=== PATIENT | female | born 1940 | race Caucasian/White ===

== ENCOUNTER 2018-06-03 04:27 | Emergency (ER) ==
[2018-06-03] MEDS ORDERED: DUONEB NEB STA (04:32)
[2018-06-03] MEDS ORDERED: SOLU-MEDROL 125 MG IVP STA (04:35)
--- NOTE | 2018-06-03 04:44 | ED.PDOC ---
General ED Provider: Dr. JAZMYNE LOCK Chief Complaint: Shortness of Air Stated Complaint: Patient is visiting from out of [facility]. She states that she has been short of breath since last night got worse this morning. Called the ambulace to [facility] where she was found to have an oxygen saturation in the 70's on 3 liters which improved with increased oxygen supplimentation and a breathing treatment. Time Seen by Physician: 04:36 Mode of Arrival: Ambulance Information Source: Patient, Family Exam Limitations: Clinical condition Nursing and Triage Documentation Reviewed and Agree: Yes Does patient meet sepsis criteria?: Yes If yes, has appropriate treatment been initiated?: Yes System Inflammatory Response Syndrome: Pulse >90 BPM, Resp >20/Minute Sepsis Protocol: For patient's 13 years and over: Temp is 96.8 and below OR 101 and greater Pulse >90 BPM Resp >20/minute Acutely Altered Mental Status Are patient's symptoms suggestive of a new infection, such as: -Pneumonia -Skin, Soft Tissue -Endocarditis -UTI -Bone, Joint Infection -Implantable Device -Acute Abdominal Infection -Wound Infection -Meningitis -Blood Stream Catheter Infection -Unknown Review of Systems - Review Of Systems Constitutional: Reports: No symptoms Eyes: Reports: No symptoms Ears, Nose, Mouth, Throat: Reports: No symptoms Respiratory: Reports: Cough, Short of air Cardiac: Reports: No symptoms GI: Reports: No symptoms : Reports: No symptoms Musculoskeletal: Reports: No symptoms Skin: Reports: No symptoms Neurological: Reports: No symptoms Endocrine: Reports: No symptoms Hematologic/Lymphatic: Reports: No symptoms All Other Systems: Reviewed and Negative Past Medical History - Past Medical History Previously Healthy: Yes Endocrine: Reports: None Cardiovascular: Reports: None Respiratory: Reports: COPD Hematological: Reports: None Gastrointestinal: Reports: None Genitourinary: Reports: None Neuro/Psych: Reports: None Musculoskeletal: Reports: None Cancer: Reports: None - Surgical History General Surgical History: Reports: None - Family History Family History: Reports: Unknown - Social History Smoking Status: Former smoker Hx Substance Use: No Lives: With family Physical Exam - Physical Exam Appearance: Ill-appearing, Thin Ill-appearing: Severe Eyes: ENZO, EOMI, Conjunctiva clear Neck: Supple Respiratory: Breath sounds diminished Cardiovascular: Tachycardia Musculoskeletal: Normal strength Skin: Warm, Dry Neurological: Motor intact, Alert, Oriented Psychiatric: Anxious Interpretation - Radiology Interpretation Radiology Interpretation By: Radiologist Radiology Results: Positive Exam Interpreted: Portable CXR (Left basilar Interstitial infiltrate which may be chronic in nature.) - EKG Interpretation Time of EKG #1: 04:58 Rate: Tachy Rhythm: Sinus Ectopy: PACs Interpretation: Pulmonary Disease partten Re-Evaluation - Re-Evaluation Time of Re-Evaluation: 05:15 Status: Improved Vital Signs Stable: Yes (P 108, REP 38, BP 150/78.) Lungs: Other (diminished) Skin: Warm and Dry Neuro: Alert and Oriented X3 - Re-Evaluation Time of Re-Evaluation: 06:29 Status: Improved (comfortable resting in bed. ) Vital Signs Stable: Yes (BP144/73, P 98, R28, Sat 92% on 50% Venti-mask) Appearance: NAD Skin: Warm and Dry Neuro: Alert and Oriented X3 CV: Other (Good air movement) Physician Notification - Case Discussed Physician Notified: Dr Garcia Time of Notification: 06:00 (Declined to admit due to RR>30 needs a roving carrier. "It does not matter if she is DNR") Physician Notified: Dr Ivory Time of Notification: 06:30 (accepted for transfer to Room 47,) Critical Care Note - Critical Care Note Total Time (mins): 45 Comments: managing COPD exacerbation Course - Course Hematology/Chemistry: 06/03/18 04:30 06/03/18 04:30 Orders, Labs, Meds: Lab Review 06/03/18 06/03/18 06/03/18 04:30 04:30 04:30 WBC 11.42 H RBC 5.19 Hgb 16.4 H Hct 53.0 H MCV 102.1 H MCH 31.6 H MCHC 30.9 L RDW Coeff of Dora 13.5 Plt Count 340 Immature Gran % (Auto) 0.3 Neut % (Auto) 79.2 Lymph % (Auto) 13.4 [place] % (Auto) 5.5 Eos % (Auto) 1.2 Baso % (Auto) 0.4 Immature Gran # (Auto) 0.0 Neut # (Auto) 9.1 H Lymph # (Auto) 1.5 [place] # (Auto) 0.6 Eos # (Auto) 0.1 Baso # (Auto) 0.0 Puncture Site O2 Saturation ABG pH ABG pCO2 ABG pO2 ABG HCO3 ABG Total CO2 ABG Base Excess Seamus Test O2 Delivery Device Oxygen Liter Flow FiO2 % Sodium 142.1 Potassium 4.68 Chloride 104.9 Carbon Dioxide 31.8 H Anion Gap 10.08 BUN 22.8 H Creatinine 0.72 Estimated GFR (MDRD) 79.00 BUN/Creatinine Ratio 31.66 Glucose 121.8 H Lactic Acid Calcium 9.20 Total Bilirubin 0.79 AST 81.9 H ALT 75.3 H Alkaline Phosphatase 151.5 H Total Creatine Kinase 38.0 Troponin I 0.036 Total Protein 7.25 Albumin 3.79 Globulin 3.46 Albumin/Globulin Ratio 1.09 Procalcitonin 0.05 06/03/18 06/03/18 04:32 04:50 WBC RBC Hgb Hct MCV MCH MCHC RDW Coeff of Dora Plt Count Immature Gran % (Auto) Neut % (Auto) Lymph % (Auto) [place] % (Auto) Eos % (Auto) Baso % (Auto) Immature Gran # (Auto) Neut # (Auto) Lymph # (Auto) [place] # (Auto) Eos # (Auto) Baso # (Auto) Puncture Site Lb O2 Saturation 95.0 ABG pH 7.379 ABG pCO2 41.3 ABG pO2 75.0 L ABG HCO3 24.4 ABG Total CO2 26 ABG Base Excess -1 Seamus Test + O2 Delivery Device Venturi mask Oxygen Liter Flow 12.00 FiO2 % 50.0 Sodium Potassium Chloride Carbon Dioxide Anion Gap BUN Creatinine Estimated GFR (MDRD) BUN/Creatinine Ratio Glucose Lactic Acid 1.55 Calcium Total Bilirubin AST ALT Alkaline Phosphatase Total Creatine Kinase Troponin I Total Protein Albumin Globulin Albumin/Globulin Ratio Procalcitonin Orders Category Date Time Status ABG DRAW REQUEST Stat CARDIO 06/03/18 04:33 Completed EKG-(ED ONLY) Stat CARDIO 06/03/18 04:32 Completed NEBULIZER TREATMENT Stat CARDIO 06/03/18 04:33 Completed ED APPLY O2 .ONCE EMERGENCY 06/03/18 04:32 Active ED CEMENT MASON APPLIED .ONCE EMERGENCY 06/03/18 04:32 Active ED IV/MEDIPORT/POWERPORT .ONCE EMERGENCY 06/03/18 04:32 Active ABG Stat LAB 06/03/18 04:32 Completed BLOOD CULTURE (ED ONLY) Stat LAB 06/03/18 04:50 Received CBC W/ AUTO DIFF Stat LAB 06/03/18 04:30 Completed COMPREHENSIVE METABOLIC PANEL Stat LAB 06/03/18 04:30 Completed CREATINE KINASE Stat LAB 06/03/18 04:30 Completed LACTIC ACID Stat LAB 06/03/18 04:50 Completed PROCALCITONIN Stat LAB 06/03/18 04:30 Completed TROPONIN I Stat LAB 06/03/18 04:30 Completed 0.9 % Sodium Chloride [Saline Flush] MEDS 06/03/18 04:32 Discontinued 1 syr IVF PRN PRN Ipratropium/Albuterol Neb [Duoneb] MEDS 06/03/18 04:32 Discontinued 1 vial NEB ONCE STA Methylprednisolone Sod Succ/Pf [Solu-Medrol 125 mg] MEDS 06/03/18 04:35 Discontinued 125 mg IVP ONCE STA CHEST, 1V AP ONLY Stat RADS 06/03/18 04:32 Completed Medications Discontinued Medications Generic Name Dose Route Start Last Admin Trade Name Freq PRN Reason Stop Dose Admin Albuterol/Ipratropium 1 vial 06/03/18 04:32 06/03/18 04:57 Duoneb NEB 06/03/18 04:33 1 vial ONCE STA Administration Methylprednisolone Sodium Succinate 125 mg 06/03/18 04:35 06/03/18 04:50 Solu-Medrol 125 Mg IVP 06/03/18 04:36 125 mg ONCE STA Administration Sodium Chloride 1 syr 06/03/18 04:32 06/03/18 04:52 Saline Flush IVF 1 syr PRN PRN Administration To flush IV Vital Signs: Temp Pulse Resp BP Pulse Ox 06/03/18 04:28 98.1 F 121 H 44 H 193/110 H 90 L Departure - Departure Time of Disposition: 06:45 Disposition: TSF SHORT-TRM HOSP Discharge Problem: COPD exacerbation Condition: Stable Pt referred to PMD for follow-up: No IPMP verified?: No Allergies/Adverse Reactions: Allergies No Known Drug Allergies Adverse Reaction (Verified 06/03/18 04:44) Home Medications: Ambulatory Orders Albuterol Sulfate 0.083% Neb [Albuterol 0.083% Neb] 1 vial NEB DIRECTED PRN 06/03/18 Ipratropium/Albuterol Sulfate [Combivent Respimat 20-100 Mcg] 2 inh INH Q4H PRN 06/03/18 Pt. Stabilized Within Hospital's Capabilities/Transferred To: [facility]. Transfer Form Completed: Yes Disposition Discussed With: Patient, Family
[2018-06-03 04:49] VITALS: BP 193/110; TEMP 98.1; BMI 19.5
--- NOTE | 2018-06-03 05:46 | DI ---
EXAM: Portable chest HISTORY: Shortness of breath COMPARISON: None. FINDINGS: The heart is enlarged. Atherosclerotic changes are seen involving the aortic arch.. There are moderate emphysematous changes. There is a 6 mmnodule "at the right lung base which may represen t a granuloma.. Interstitial opacity is noted medially at the left lung base. IMPRESSION: Cardiomegaly. Emphysematous changes. Left basilar interstitial infiltrate which may be chronic in nature
== END 2018-06-03 07:16 | disposition short-term general hospital (02) ==
LOC: ED 04:27
DX: J44.1 Chronic obstructive pulmonary disease with (acute) exacerbation (principal); R06.02 Shortness of breath; Z99.81 Dependence on supplemental oxygen; R00.0 Tachycardia, unspecified
CPT/HCPCS: 36415; 80053; 82550; 82803; 83605; 84145; 84484; 85025; 87040; 93005; 93010; 94640; 96375; 99285